=== PATIENT | female | born 2000 | race Caucasian/White ===

== ENCOUNTER 2024-12-26 14:08 | Emergency (ER) | payer MEDICAID ==
[~2024-12-26] VITALS: Ht 172.7 cm; Wt 77.3 kg
[2024-12-26 14:25] VITALS: BP 123/79; PULSE 99; RESP 16; TEMP 98.6; O2SAT 98
[2024-12-26] MEDS ORDERED: ACET-3385 PO (15:36)
[2024-12-26] MEDS ORDERED: NEOM10SO24 AD (15:36)
[2024-12-26] MEDS ORDERED: AMOX-457 PO (15:36)
[2024-12-26] MEDS: AMOX TR/POT CLAV 875 MG/125 MG TABLET PO ONE (15:39)
[2024-12-26] MEDS: IBUPROFEN 600 MG TABLET PO ONE (15:40)
[2024-12-26] MEDS: NEOMYCIN/POLYMYXIN B/HYDROCORT 10 ML OTIC SOLUTION AD ONE (15:53)
== END 2024-12-26 16:09 | disposition home or self-care (01) ==
LOC: EMS 14:12
DX: H66.91 Otitis media, unspecified, right ear (principal); H60.91 Unspecified otitis externa, right ear
CPT/HCPCS: 99284; Z7502; Z7610